=== PATIENT | male | born 1995 | race Hispanic/Latino ===

== ENCOUNTER 2025-05-18 05:59 | Day surgery (SDC) | payer OTHER ==
[2025-05-17 13:05] LABS: IMMATURE GRANULOCYTE ABSOLUTE 0.01 K/uL (0-1); NUCLEATED RED BLOOD CELLS 0.0 % (0.0-0.19); PLATELET COUNT (AUTO) 252 K/uL (130-400); RED BLOOD CELL COUNT(AUTO) 5.23 MIL/uL (4.50-6.20); RED CELL DISTRIBUTION WIDTH 13.2 % (11.0-15.5); WHITE BLOOD COUNT (AUTO) 6.3 K/uL (4.8-10.8)
[2025-05-17 13:09] LABS: APPEARANCE,URINE CLEAR (CLEAR); GLUCOSE, URINE (UA) NEGATIVE (NEGATIVE); LEUKOCYTE ESTERASE ,URINE NEGATIVE Leu/uL (NEGATIVE); NITRATE,URINE NEGATIVE (NEGATIVE); OCCULT BLOOD,URINE NEGATIVE (NEGATIVE)
[2025-05-17 13:13] LABS: CREATININE 1.0 mg/dL (0.5-1.3); GLOMERULAR FILTR. RATE CALC 104.0 mL/min (>90); GLUCOSE,RANDOM 112.0 mg/dL (70-105); SODIUM SERUM 137.0 mmol/L (136-145); UREA NITROGEN, BLOOD 10.0 mg/dL (7-18)
[2025-05-17 13:15] LABS: ADD UA MICROSCOPIC NO
[2025-05-17 13:16] LABS: INR 1.05 (0.85-1.15)
[2025-05-17 13:21] VITALS: BP 129/79; PULSE 66; RESP 18; TEMP 97.7
[~2025-05-18] VITALS: Ht 162.6 cm; Wt 86.0 kg
[2025-05-18] VITALS (18 sets, daily range): BP systolic 106–165; BP diastolic 68–108; PULSE 61–110; RESP 12–21; TEMP 96.9–97.3
[~2025-05-18 05:59] MED LIST: IBUP-2077 PO; TRAM-543 PO
[2025-05-18] MEDS ORDERED: LACTATED RINGERS 1000ML 1,000 ML IV ONE (06:22)
[2025-05-18] MEDS ORDERED: TRANEXAMIC ACID 1000MG/10ML ONE (06:54)
[2025-05-18] MEDS ORDERED: VANCOMYCIN 1G/250ML KIT 250 ML IV ONE (06:54)
[2025-05-18] MEDS ORDERED: THROMBIN-JMI 20000 UNIT KIT TP ONE (06:55)
[2025-05-18] MEDS ORDERED: MIDAZOLAM HCL 1 MG/ML 2ML VIAL ONE (07:22)
[2025-05-18] MEDS ORDERED: GLYCOPYRROLATE 0.2 MG/ML 5 ML VIAL ONE (07:50)
[2025-05-18] MEDS ORDERED: LIDOCAINE PF 100MG/5ML (2%) SYRINGE 5ML ONE ×2 (07:50→08:29)
[2025-05-18] MEDS ORDERED: NEOSTIGMINE METHYLSULFATE 1MG/ML IV ONE (07:50)
[2025-05-18] MEDS ORDERED: SUCCINYLCHOLINE CHLORIDE 20 MG/ML 10 ML VIAL ONE (07:50)
[2025-05-18] MEDS: THROMBIN 20000 UNITS/VIAL POWDER TP ONE (08:20)
[2025-05-18] MEDS ORDERED: LIDOCAINE 1%-EPI 1:100,000 20 ML VIAL ONE ×2 (08:29→08:44)
[2025-05-18] MEDS: BACITRACIN 28.4 GM OINT TP ONE (09:00)
[2025-05-18] MEDS ORDERED: BACITRACIN 28.4 GM OINT TP ONE (09:01)
--- NOTE | 2025-05-18 10:20 | NUR ---
DRESSING: DRESSING TO LOWER BACK DRY/INTACT WITH NO ACTIVE BLEEDING PRESENT. NO REDNESS/SWELLING NOTED TO SURROUNDING AREA.
[2025-05-18] MEDS: HYDROcodone/APAP 5/325 1 TAB TABLET PO ONE (11:00)
--- NOTE | 2025-05-18 12:00 | NUR ---
dressing: dressing to lower back remains dry/intact with no active bleeding present. no redness/swelling noted to surrounding area
--- NOTE | 2025-05-18 16:45 | OP ---
DATE OF PROCEDURE: 05/18/2025 PREOPERATIVE DIAGNOSES: Chronic pain syndrome, post-laminectomy syndrome. POSTOPERATIVE DIAGNOSES: Chronic pain syndrome, post-laminectomy syndrome. PROCEDURES: Removal of dorsal column stimulator epidural leads and removal of batteries. SURGEON: Elia Love M.D. ANESTHESIA: General. ESTIMATED BLOOD LOSS: Less than 10 mL COMPLICATIONS: No intraoperative complication. INDICATIONS: A 29-year-old patient with prior history of placement of dorsal column stimulator. At this time, he has been out of therapy as the device does not help him anymore and he has elected for it to be removed. The patient tolerated the procedure so well. DESCRIPTION OF PROCEDURE: The patient was brought to the operating room. Adequate general endotracheal anesthesia was achieved. IV antibiotics were given, positioned prone with adequate padding to all pressure area. The back was extensively prepped and draped in the usual sterile fashion. The prior incisions already delineated were infiltrated with lidocaine with epinephrine. They were opened. The battery site was bovied. The battery was explanted thereafter. A small was done on the leads to identify the proper site of the incision in the midline, which was opened with a blade. Bipolar coagulation continued. Dissection done with Bovie. I was able to expose the leads with their , which were dislodged and they were removed. After loosening them, the leads were removed from the epidural space as they were easily threaded down and disconnected from the battery, removing the battery and the leads. Copious irrigation was done with bacteriostatic solution. X-rays were done to verify the removal of the whole system and then, the wound was sprinkled with antibiotics and powder and closed the anatomical layer in Vicryl 1, Vicryl 2, and staple for the skin. The patient tolerated the procedure well and there were no complications. Findings were addressed. TID: [id number] RECEIPT: [id number]
--- NOTE | 2025-05-20 10:33 | HMCIMG ---
Intraoperative fluoroscopic assessment of the removal of spinal nerve stimulator INDICATION: removal of spinal nerve stimulator COMPARISON: None available Fluoroscopy time: 4.5 seconds. FINDINGS: 5 images demonstrate removal of the spinal stimulator. IMPRESSION: Details of the finding of the procedure notes.
== END 2025-05-18 12:00 | disposition home or self-care (01) ==
LOC: DAH 05:59
PROVIDERS: ATTEND Neurological Surgery
DX: T85.113A Breakdown (mechanical) of implanted electronic neurostimulator, generator, initial encounter (principal); G89.4 Chronic pain syndrome; M96.1 Postlaminectomy syndrome, not elsewhere classified; Z79.01 Long term (current) use of anticoagulants
CPT/HCPCS: 63661; 63688; 80048; 85025; 85610; 85730; 86850; 86900; 86901; 81003; 36415; 72020; A4510; A4663; A4649; A4606; J7120; J3373 ×2; J3010; J3490 ×9; J1100; J0330; J2003 ×2; J2250; J2704 ×2; J2710; J0665 ×2; J3260 ×2; J0690; A4215; A4223 ×2; A4213; A4222; A4221; A4216; A4600